=== PATIENT | male | born 1970 | race Caucasian/White ===

== ENCOUNTER → 2016-09-09 | Outpatient (CLI) | payer OTHER ==
--- NOTE | 2016-09-09 12:57 | EST ---
DATE OF SERVICE: 09/09/2016 AGE: 46Y SEX: M HT: 66" WT: 149 lbs. Protocol Baudilio: X Other: Stage: IV Dur. of Exercise: 10 minutes *Heart Rate Blood Pressure *Rest: 99 Rest: 140/93 * *Max. Achieved: 163 Maximum BP: 186/65 85% PMHR: 149 100% PMHR: 175 *METS: INDICATIONS: Chest pain. MEDICATIONS: Clyde, Ativan, Motrin. Patient was exercised for a total period of 10 minutes. A peak heart rate of 163 was achieved. Maximum blood pressure of 186/65 mmHg was noted. Resting EKG shows normal sinus rhythm with normal NH interval and QRS duration and normal ST-T waves. No ST segment depression suggestive of ischemia was noted. No dysrhythmias are noted. FINAL IMPRESSION: This exercise test is not suggestive of ischemia. Patient's exercise tolerance is normal. No dysrhythmias are noted.
--- NOTE | 2016-09-11 15:15 | ECHOF ---
Referral Reason:Atypical Chest Pain MEASUREMENTS -------- HEIGHT: 167.6 cm WEIGHT: 67.6 kg BP: 140/93 RVIDd: 2.1 cm (< 3.3) IVSd: 1.1 cm (0.6 - 1.1) LVIDd: 4.5 cm (3.9 - 5.3) LVPWd: 1.0 cm (0.6 - 1.1) IVSs: 1.4 cm LVIDs: 3.3 cm LVPWs: 1.2 cm LA Diam: 3.0 cm (2.7 - 3.8) LAESV Index (A-L): 13.44 ml/m Ao Diam: 3.0 cm (2.0 - 3.7) AV Cusp: 1.8 cm (1.5 - 2.6) LA Diam: 2.3 cm (2.7 - 3.8) MV EXCURSION: 11.063 mm (> 18.000) MV EF SLOPE: 44 mm/s (70 - 150) EPSS: 1.3 cm MV E Allen: 0.44 m/s MV DecT: 144 ms MV A Allen: 0.59 m/s MV E/A Ratio: 0.74 RAP: 5.00 mmHg RVSP: 23.52 mmHg FINDINGS -------- Sinus rhythm. This was a technically good study. Left ventricular wall thickness is normal. Overall left ventricular systolic function is low-normal with, an EF between 50 - 55 %. The right ventricle is normal in size. Normal LA size by volume 22+/-6 ml/m2. The right atrium is normal in size. The aortic valve is trileaflet and appears structurally normal. The mitral valve leaflets are mildly thickened. Mild mitral annular calcification present. There is trace mitral regurgitation. Trace tricuspid regurgitation present. Right ventricular systolic pressure is normal at < 35 mmHg. Pulmonic valve appears structurally normal. The aortic root size is normal. Normal inferior vena cava with normal inspiratory collapse consistent with estimated right atrial pressure of 5 mmHg. There is no pericardial effusion. CONCLUSIONS -------- 1. Sinus rhythm. 2. Mild mitral annular calcification present. 3. There is trace mitral regurgitation. 4. Trace tricuspid regurgitation present. 5. Right ventricular systolic pressure is normal at < 35 mmHg. 6. Pulmonic valve appears structurally normal. 7. The aortic root size is normal. 8. Normal inferior vena cava with normal inspiratory collapse consistent with estimated right atrial pressure of 5 mmHg. 9. There is no pericardial effusion. 10. This was a technically good study. 11. Left ventricular wall thickness is normal. 12. Overall left ventricular systolic function is low-normal with, an EF between 50 - 55 %. 13. The right ventricle is normal in size. 14. Normal LA size by volume 22+/-6 ml/m2. 15. The right atrium is normal in size. 16. The aortic valve is trileaflet and appears structurally normal. 17. The mitral valve leaflets are mildly thickened. [employer] SALESPERSON: Jess Danielle RDCS
== END | disposition home or self-care (01) ==
LOC: RADNMMAIN 11:03
PROVIDERS: ATTEND Family Medicine
DX: I08.1 Rheumatic disorders of both mitral and tricuspid valves (principal)
CPT/HCPCS: 93017; 93306

== ENCOUNTER → 2016-11-15 | Outpatient (CLI) | payer OTHER | END | disposition home or self-care (01) | LOC: RADECHMAIN 11:58 | PROVIDERS: ATTEND Family Medicine | DX: I48.0 Paroxysmal atrial fibrillation (principal) | CPT/HCPCS: 93270; 93271 ==

== ENCOUNTER → 2016-12-08 | Outpatient (CLI) | payer OTHER ==
--- NOTE | 2016-12-08 16:18 | US ---
EXAMINATION TYPE: US venous doppler duplex LE LT DATE OF EXAM: 12/08/2016 4:07 PM COMPARISON: NONE CLINICAL HISTORY: Left Thigh Left Calf Pain M79.605. Pt states left leg pain and numbness SIDE PERFORMED: Left TECHNIQUE: The lower extremity deep venous system is examined utilizing real time linear array sonog dariana with graded compression, doppler sonography and color-flow sonography. VESSELS IMAGED: External Iliac Vein (EIV) Common Femoral Vein Deep Femoral Vein Greater Saphenous Vein * Femoral Vein Popliteal Vein Small Saphenous Vein * Proximal Calf Veins (* superficial vessels) No popliteal fossa lesion is seen. Left Leg: Negative for DVT Results called to Elaine at Dr's office at time of exam IMPRESSION: THIS EXAMINATION IS NEGATIVE FOR DVT WITHIN THE LEFT LEG.
== END | disposition home or self-care (01) ==
LOC: RADUSWWP 15:20
PROVIDERS: ATTEND Family Medicine
DX: M79.605 Pain in left leg (principal)

== ENCOUNTER → 2017-01-02 | Outpatient (CLI) | payer OTHER ==
[2017-01-02 15:51] LABS: CHCM 34.2; HCT 43.3 % (39.0-53.0); HDW 2.56; HGB 14.4 gm/dL (13.0-17.5); MCH 32.3 pg (25.0-35.0); MCHC 33.3 g/dL (31.0-37.0); MCV 96.9 fL (80.0-100.0); Mean Platelet Volume 7.2; RBC 4.47 m/uL (4.30-5.90); RDW 13.4 % (11.5-15.5); WBC 8.1 k/uL (3.8-10.6)
[2017-01-02 16:09] LABS: ALT 33 U/L (21-72); AST 25 U/L (17-59); Blood Urea Nitrogen 24 mg/dL (9-20); Non-African American GFR(MDRD) >60 (>60 ml/min/1.73 sqM)
[2017-01-02 16:41] LABS: Hepatitis B Surface Ag Index 0.05
[2017-01-02 16:58] LABS: Hepatitis B Surface Antibody Negative (Negative); Hepatitis C Virus IgG Ab Negative (Negative); Hepatitis C Virus IgG Index 0.02
== END | disposition home or self-care (01) ==
LOC: LABWHC1 15:31
DX: L40.0 Psoriasis vulgaris (principal); R03.0 Elevated blood-pressure reading, without diagnosis of hypertension
CPT/HCPCS: 36415; 82565; 84450; 84460; 84520; 85027; 86706; 86803; 87340

== ENCOUNTER → 2017-01-11 | Outpatient (CLI) | payer OTHER ==
[2017-01-11 15:08] LABS: CH 32.2; CHCM 34.9; HCT 37.1 % (39.0-53.0); HDW 2.71; HGB 13.2 gm/dL (13.0-17.5); MCH 32.8 pg (25.0-35.0); MCHC 35.5 g/dL (31.0-37.0); MCV 92.4 fL (80.0-100.0); Mean Platelet Volume 7.3; RBC 4.01 m/uL (4.30-5.90); RDW 13.1 % (11.5-15.5); WBC 7.7 k/uL (3.8-10.6)
[2017-01-11 19:44] LABS: ALT 29 U/L (21-72); AST 24 U/L (17-59); Blood Urea Nitrogen 15 mg/dL (9-20); Non-African American GFR(MDRD) >60 (>60 ml/min/1.73 sqM)
[2017-01-11 20:18] LABS: Hepatitis B Surface Ag Index 0.06
[2017-01-11 20:36] LABS: Hepatitis B Surface Antibody Negative (Negative); Hepatitis C Virus IgG Ab Negative (Negative); Hepatitis C Virus IgG Index 0.01
== END | disposition home or self-care (01) ==
LOC: LABWHC1 14:37
PROVIDERS: ATTEND Dermatology
DX: L40.0 Psoriasis vulgaris (principal)
CPT/HCPCS: 36415; 82565; 84450; 84460; 84520; 85027; 86706; 86803; 87340

== ENCOUNTER → 2017-01-26 | Outpatient (CLI) | payer OTHER | END | disposition home or self-care (01) | LOC: LABPAT 13:10 | PROVIDERS: ATTEND Internal Medicine Interventional Cardiology | DX: Z01.812 Encounter for preprocedural laboratory examination (principal); R07.9 Chest pain, unspecified | CPT/HCPCS: 80051 ==

== ENCOUNTER 2017-01-30 07:20 | Day surgery (SDC) | payer OTHER ==
[2017-01-26 09:05] VITALS: BMI 24.2
[~2017-01-30 07:20] MED LIST: ALPRAZolam 0.25 MG TAB PO PRN; ALPRAZolam 0.5 MG TAB PO PRN; ASPIRIN 325 MG TAB PO STA; ATORVASTATIN 80 MG TAB PO STA; NITROGLYCERIN SL TABS 0.4 MG TAB SUBLINGUAL PRN; SODIUM CHLORIDE 0.9% 1,000 ML in EMPTY BAG 1 BAG IV ONE
[2017-01-30] MEDS ORDERED: MIDAZOLAM 2 MG/2 ML VIAL IV ONE (09:00)
[2017-01-30] MEDS ORDERED: LIDOCAINE 2% INJ 20 MG/ML SQ ONE (09:02)
[2017-01-30] MEDS: VERAPAMIL SYRINGE (5 MG/10 ML) INTRAARTER ONE ×2 (09:15→09:30)
[2017-01-30] MEDS ORDERED: IOHEXOL 350 MG/ML 125ML BOTTLE INJ ONE (09:30)
[2017-01-30] MEDS ORDERED: RX INFO: IV CONTRAST WAS GIVEN 1 EACH MISC MISCELLANE PRN (09:35)
[2017-01-30] MEDS ORDERED: SODIUM CHLORIDE 0.9% 1,000 ML IV SCH (09:45)
[2017-01-30 09:49] VITALS: TEMP 97.8
[2017-01-30] MEDS ORDERED: HYDROcodone/APAP 10-325MG 1 EACH TAB PO ONE (11:15)
[2017-01-30 11:22] VITALS: RESP 16
[2017-01-30 14:17] VITALS: BP 119/76; PULSE 68
--- NOTE | 2017-01-31 06:12 | CC ---
DATE OF SERVICE: 01/30/2017 PERFORMING PHYSICIAN: Tez Calles MD, slinger sequins. PROCEDURE PERFORMED: 1. Selective right and left coronary angiogram. 2. Left heart catheterization. 3. Left ventriculography. INDICATIONS: This is a pleasant 46-year-old gentleman with hypertension and family history of coronary artery disease continues to have exertional chest discomfort. APPROACH: Right radial artery. COMPLICATION: None. LEVEL OF SEDATION: Moderate with a sedation length of 30 minutes. PROCEDURE DESCRIPTION: After obtaining an informed consent, the patient was brought to the cardiac slab conditioner supervisor. The right radial artery was cannulated. Using micropuncture technique under ultrasound guidance, the micropuncture wire passed easily and placed a 6-Czech sheath in the right radial artery. Subsequently, the selective right and left coronary angiograms using JR3.5 and JL3.0 catheters. After that, I did a left heart catheterization and LV gram using 5 Czech pigtail catheter. The procedure was completed without any complication. SELECTIVE CORONARY ANGIOGRAM 1. The right coronary artery is a large caliber vessel. It is a dominant vessel which is angiographically normal. 2. The left main is angiographically normal. It bifurcates into the left circumflex and left anterior descending artery. 3. The left circumflex is a large caliber vessel and it is a nondominant vessel. The left circumflex is angiographically normal. It gives rise into 2 obtuse marginal branches, both are angiographically normal. 4. Left anterior descending artery. It is a large caliber vessel and it is angiographically normal. In the mid portion, it gives rise into large first diagonal branch, which appears to be angiographically normal. HEMODYNAMICS: The left ventricular end-diastolic pressure was ( ) mmHg. No gradient was identified across the aortic valve. LEFT VENTRICULOGRAPHY: Left ventriculography was performed in the AGUIRRE projection using a ( ) injection. The left ventricular systolic function is low normal with EF of about 50%. CONCLUSION: 1. Normal coronary angiogram. 2. Low normal left ventricular systolic function with an ejection fraction of 50%. POSTPROCEDURE MANAGEMENT: 1. Maximize medical treatment. 2. Blood pressure control. 3. Follow up with the patient. [facility]ITAL[facility]
--- NOTE | 2017-01-31 06:22 | MISC ---
January 30, 2017 NAVEEN DING MD RE Mj Chowdhury Dear Naveen: MrBhargavi Chowdhury underwent a heart catheterization that showed normal coronaries. I want to thank you for allowing me to participate in his care and please do not hesitate to call if you have any questions or concerns. Sincerely, MD HEMANT Ac
== END 2017-01-30 14:40 | disposition home or self-care (01) ==
LOC: CATHCVL 07:20
PROVIDERS: ATTEND Internal Medicine Interventional Cardiology
DX: I20.0 Unstable angina (principal); I10 Essential (primary) hypertension; Z82.49 Family history of ischemic heart disease and other diseases of the circulatory system; Z79.82 Long term (current) use of aspirin; Z87.891 Personal history of nicotine dependence; Z79.899 Other long term (current) drug therapy
CPT/HCPCS: 93458; 76937; 99152; 99153; C1769; C1894; J2001; J2250; J1644; Q9967

== ENCOUNTER → 2017-09-08 | Outpatient (CLI) | payer OTHER ==
[2017-09-08 10:09] LABS: Basophils % (A) 0 %; Eosinophils # (A) 0.1 k/uL (0-0.7); Eosinophils % (A) 1 %; HCT 41.2 % (39.0-53.0); HGB 13.8 gm/dL (13.0-17.5); Lymphocytes # (A) 1.7 k/uL (1.0-4.8); Lymphocytes % (A) 32 %; MCH 30.1 pg (25.0-35.0); MCHC 33.6 g/dL (31.0-37.0); MCV 89.8 fL (80.0-100.0); Mean Platelet Volume 7.8; Monocytes # (A) 0.3 k/uL (0-1.0); Monocytes % (A) 5 %; Neutrophils # (A) 3.2 k/uL (1.3-7.7); Neutrophils % (A) 60 %; Platelet Count 217 k/uL (150-450); RBC 4.59 m/uL (4.30-5.90); RDW 13.2 % (11.5-15.5); WBC 5.3 k/uL (3.8-10.6)
[2017-09-08 10:26] LABS: ALT 71 U/L (21-72); AST 30 U/L (17-59)
[2017-09-12 14:14] LABS: Hepatitis BE Antibody NEG (Negative); Hepatitis BE Antigen NEG (Negative)
== END | disposition home or self-care (01) ==
LOC: LABWHC1 09:45
PROVIDERS: ATTEND Dermatology
DX: L40.0 Psoriasis vulgaris (principal); R03.0 Elevated blood-pressure reading, without diagnosis of hypertension
CPT/HCPCS: 36415; 82565; 84450; 84460; 85025; 86480; 86707; 87350

== ENCOUNTER 2017-10-26 00:59 | Observation (INO) | payer OTHER ==
[2017-10-26] MEDS ORDERED: MORPHINE SULFATE 4MG/4ML SYRG IVP STA (01:26)
[2017-10-26] MEDS ORDERED: ONDANSETRON 4 MG/2 ML VIAL IVP STA (01:26)
[2017-10-26] MEDS ORDERED: SODIUM CHLORIDE 0.9% 1,000 ML IV STA (01:26)
[2017-10-26 02:07] LABS: Basophils % (A) 0 %; Eosinophils # (A) 0.1 k/uL (0-0.7); Eosinophils % (A) 2 %; HCT 40.1 % (39.0-53.0); HGB 13.9 gm/dL (13.0-17.5); Lymphocytes # (A) 2.2 k/uL (1.0-4.8); Lymphocytes % (A) 38 %; MCHC 34.5 g/dL (31.0-37.0); MCV 86.9 fL (80.0-100.0); Mean Platelet Volume 7.6; Monocytes # (A) 0.4 k/uL (0-1.0); Monocytes % (A) 7 %; Neutrophils % (A) 51 %; Platelet Count 203 k/uL (150-450); RBC 4.62 m/uL (4.30-5.90); RDW 13.4 % (11.5-15.5); WBC 5.8 k/uL (3.8-10.6)
--- NOTE | 2017-10-26 02:20 | XR ---
EXAMINATION TYPE: XR KUB DATE OF EXAM: 10/26/2017 COMPARISON: 02/18/2011 HISTORY: Abdominal pain TECHNIQUE: 2 views FINDINGS: There is no sign of intestinal obstruction or pneumoperitoneum. Fecal pattern is normal. Mary Carmen ng bases are clear. There are no pathologic calcifications over the kidneys. IMPRESSION: Nonacute abdomen. No change.
[2017-10-26 02:22] LABS: ALT 53 U/L (21-72); AST 30 U/L (17-59); Albumin 3.7 g/dL (3.5-5.0); Alkaline Phosphatase 79 U/L (38-126); Amylase 56 U/L (30-110); Anion Gap 10 mmol/L; Blood Urea Nitrogen 15 mg/dL (9-20); Calcium 9.6 mg/dL (8.4-10.2); Carbon Dioxide 28 mmol/L (22-30); Chloride 105 mmol/L (98-107); Glucose 99 mg/dL (74-99); Lipase 40 U/L (23-300); Potassium 4.2 mmol/L (3.5-5.1); Sodium 143 mmol/L (137-145); Total Bilirubin 0.2 mg/dL (0.2-1.3); Total Protein 6.2 g/dL (6.3-8.2)
[2017-10-26 02:37] LABS: Appearance,Urine Clear (Clear); Bilirubin,Urine Negative (Negative); Blood,Urine Negative (Negative); Color,Urine Light Yellow; Glucose,Urine (UA) Negative (Negative); Ketones,Urine Negative (Negative); Leukocyte Esterase,Urine Negative (Negative); Nitrite,Urine Negative (Negative); Protein,Urine Negative (Negative); Specific Gravity,Urine 1.012 (1.001-1.035); Urobilinogen,Urine <2.0 mg/dL (<2.0)
[2017-10-26] MEDS ORDERED: RX INFO: IV CONTRAST WAS GIVEN 1 EACH MISC MISCELLANE PRN (02:39)
--- NOTE | 2017-10-26 03:08 | CT ---
EXAMINATION TYPE: CT abdomen pelvis w con DATE OF EXAM: 10/26/2017 COMPARISON: NONE HISTORY: RLQ pain CT DLP: 472.40 mGycm Automated exposure control for dose reduction was used. TECHNIQUE: Helical acquisition of images was performed from the lung bases through the pelvis. CONTRAST: Performed without Oral Contrast and with IV Contrast, patient injected with 100 mL of Isovue 300. FINDINGS: Lung bases are clear. There is no pleural effusion. Heart size is normal. Liver spleen pancreas gallbladder appear normal. Bile ducts are not dilated. There is no adrenal mass . Kidneys show satisfactory contrast opacification. There is no hydronephrosis. Bladder distends smoo thly. There is no retroperitoneal adenopathy. There is no ascites. There is no sign of free air. Bony structures appear intact. Lumbar spine appears normal. I see no intestinal wall thickening. There ar e no dilated loops. There is high density in the appendix that could be calcification or previous con trast. Appendix measures 6-7 mm. I see no surrounding inflammation. There is no evidence of a hernia. IMPRESSION: APPENDIX IS TOP NORMAL IN THICKNESS. NO SURROUNDING INFLAMMATION. NO EVIDENCE OF RENAL MASS OR OBSTRU CTION. I DO NOT SEE A DEFINITE CAUSE FOR RIGHT LOWER QUADRANT PAIN. The possibility of a very early a ppendicitis cannot be entirely excluded.
--- NOTE | 2017-10-26 03:46 | ED ---
Abdominal Pain HPI - General Source: patient Mode of arrival: ambulatory Limitations: no limitations <Juanita Esteves - Last Filed: 10/26/17 04:01> <Tristian Dunaway - Last Filed: 10/29/17 10:08> - General Chief Complaint: Abdominal Pain Stated Complaint: LRQ pain Time Seen by Provider: 10/26/17 01:22 - History of Present Illness Initial Comments: 47 year-old male patient presents to the emergency department today for complaints of right lower quadrant abdominal pain. Patient reports the pain started approximately 2:30 this afternoon has progressively worsened. Patient states he has felt nauseated but has not vomited. He states the pain is now starting to radiate around to his back. He denies any hematuria, dysuria, urinary frequency, urinary urgency. Denies any previous surgeries. Denies any known fevers or chills. Patient denies any recent rash, shortness breath, chest pain, diarrhea, constipation, back pain, numbness, tingling, dizziness, weakness , headache, visual changes, or any other complaints. (Juanita Esteves) - Related Data Home Medications Medication Instructions Recorded Confirmed Hydrocodone/Acetaminophen 1 tab PO DAILY PRN 07/03/15 10/26/17 [Hydrocodone-Acetamin 10-325 mg] Aspirin EC [Ecotrin Low Dose] 81 mg PO DAILY 01/26/17 10/26/17 LORazepam [Ativan] 1 mg PO DAILY PRN 01/26/17 10/26/17 Metoprolol Tartrate [Lopressor] 25 mg PO BID 01/26/17 10/26/17 Ranitidine HCl 150 mg PO DAILY PRN 01/26/17 10/26/17 amLODIPine BESYLATE [Norvasc] 10 mg PO DAILY 01/26/17 10/26/17 Allergies Allergy/AdvReac Type Severity Reaction Status Date / Time No Known Allergies Allergy Verified 10/26/17 07:39 Review of Systems ROS Other: All systems not noted in ROS Statement are negative. <Juanita Esteves - Last Filed: 10/26/17 04:01> ROS Other: All systems not noted in ROS Statement are negative. <Tristian Dunaway - Last Filed: 10/29/17 10:08> ROS Statement: Those systems with pertinent positive or pertinent negative responses have been documented in the HPI. Past Medical History Past Medical History: Chest Pain / Angina, GERD/Reflux, Hyperlipidemia, Hypertension, Skin Disorder Additional Past Medical History / Comment(s): SEASONAL ALLERGIES. PSORIASIS History of Any Multi-Drug Resistant Organisms: None Reported Past Surgical History: Orthopedic Surgery Additional Past Surgical History / Comment(s): rt shoulder SX. LT ARM SX Past Anesthesia/Blood Transfusion Reactions: No Reported Reaction Past Psychological History: Anxiety Smoking Status: Former smoker Past Alcohol Use History: None Reported Past Drug Use History: None Reported - Past Family History Mother Family Medical History: No Reported History <Juanita Esteves M - Last Filed: 10/26/17 04:01> General Exam Limitations: no limitations General appearance: alert, in no apparent distress, other (This is a well- developed, well-nourished adult male patient in no acute distress. Vital signs upon presentation are temperature 98.8F, pulse 67, respirations 16, blood pressure 134/96, pulse ox 98% on room air.) Eye exam: Present: normal appearance, PERRL, EOMI. Absent: scleral icterus, conjunctival injection, periorbital swelling ENT exam: Present: normal exam, normal oropharynx, mucous membranes moist Respiratory exam: Present: normal lung sounds bilaterally. Absent: respiratory distress, wheezes, rales, rhonchi, stridor Cardiovascular Exam: Present: regular rate, normal rhythm, normal heart sounds. Absent: systolic murmur, diastolic murmur, rubs, gallop, clicks GI/Abdominal exam: Present: soft, tenderness (Right lower quadrant tenderness at McBurney's point. Periumbilical tenderness.), normal bowel sounds. Absent: distended, guarding, rebound, rigid Neurological exam: Present: alert, oriented X3, CN II-XII intact Psychiatric exam: Present: normal affect, normal mood Skin exam: Present: warm, dry, intact, normal color. Absent: rash <Juanita Esteves M - Last Filed: 10/26/17 04:01> Vital Signs 10/26/17 10/26/17 10/26/17 01:10 04:11 05:09 Temperature 98.8 F 97.8 F 97.1 F L Pulse Rate 67 73 67 Respiratory 16 16 18 Rate Blood Pressure 134/96 121/76 131/87 O2 Sat by Pulse 98 98 97 Oximetry Medical Decision Making - Lab Data Result diagrams: 10/26/17 01:58 10/26/17 01:58 - Radiology Data Radiology results: report reviewed, image reviewed <Juanita Esteves - Last Filed: 10/26/17 04:01> - Lab Data Result diagrams: 10/26/17 08:28 10/26/17 01:58 <Tristian Dunaway - Last Filed: 10/29/17 10:08> - Medical Decision Making 47 old male patient presents to the emergency department today for evaluation of right lower quadrant abdominal pain. Physical examination did reveal some right lower quadrant and periumbilical abdominal tenderness. Labs reviewed and were unremarkable. White blood cell count is normal at this time. Patient is afebrile. Given patient's symptoms coupled with the view of the appendix on computed tomography scan we cannot exclude early appendicitis. My attending Dr. Dunaway did speak to Dr. Lopez who accepts patient for observation. We will provide symptomatic management. (Juanita Esteves) I saw this patient in conjunction with the physician music assistant. I performed independent history and physical exam. Agree with case management. (Tristian Dunaway) - Lab Data Lab Results 10/26/17 10/26/17 10/26/17 Range/Units 01:58 01:58 02:24 WBC 5.8 (3.8-10.6) k/uL RBC 4.62 (4.30-5.90) m/uL Hgb 13.9 (13.0-17.5) gm/dL Hct 40.1 (39.0-53.0) % MCV 86.9 (80.0-100.0) fL MCH 30.0 (25.0-35.0) pg MCHC 34.5 (31.0-37.0) g/dL RDW 13.4 (11.5-15.5) % Plt Count 203 (150-450) k/uL Neutrophils % 51 % Lymphocytes % 38 % Monocytes % 7 % Eosinophils % 2 % Basophils % 0 % Neutrophils # 3.0 (1.3-7.7) k/uL Lymphocytes # 2.2 (1.0-4.8) k/uL Monocytes # 0.4 (0-1.0) k/uL Eosinophils # 0.1 (0-0.7) k/uL Basophils # 0.0 (0-0.2) k/uL Sodium 143 (137-145) mmol/L Potassium 4.2 (3.5-5.1) mmol/L Chloride 105 (98-107) mmol/L Carbon Dioxide 28 (22-30) mmol/L Anion Gap 10 mmol/L BUN 15 (9-20) mg/dL Creatinine 0.93 (0.66-1.25) mg/dL Est GFR (CKD-EPI)AfAm >90 (>60 ml/min/1.73 sqM) Est GFR (CKD-EPI)NonAf >90 (>60 ml/min/1.73 sqM) Glucose 99 (74-99) mg/dL Calcium 9.6 (8.4-10.2) mg/dL Total Bilirubin 0.2 (0.2-1.3) mg/dL AST 30 (17-59) U/L ALT 53 (21-72) U/L Alkaline Phosphatase 79 (38-126) U/L Total Protein 6.2 L (6.3-8.2) g/dL Albumin 3.7 (3.5-5.0) g/dL Amylase 56 (30-110) U/L Lipase 40 (23-300) U/L Urine Color Light Yellow Urine Appearance Clear (Clear) Urine pH 5.0 (5.0-8.0) Ur Specific [place] 1.012 (1.001-1.035) Urine Protein Negative (Negative) Urine Glucose (UA) Negative (Negative) Urine Ketones Negative (Negative) Urine Blood Negative (Negative) Urine Nitrite Negative (Negative) Urine Bilirubin Negative (Negative) Urine Urobilinogen <2.0 (<2.0) mg/dL Ur Leukocyte Esterase Negative (Negative) - Radiology Data 2 views of the abdomen shows no sign of intestinal obstruction or pneumoperitoneum. Fecal pattern is normal. Lung bases are clear. There are no pathologic calcifications over the kidneys. Impression by Dr. Medel shows nonacute abdomen no change. CT of the abdomen and pelvis with contrast was obtained. Report was reviewed in its entirety. Impression by Dr. Medel shows appendix is top normal in thickness. No surrounding inflammation. No evidence of renal mass or obstruction. I do not see definite cause for right lower quadrant pain. The possibility of very early appendicitis cannot be entirely excluded. (Juanita Esteves) Disposition Is patient prescribed a controlled substance at d/c from ED?: No Decision to Admit Reason: Admit from EC Decision Date: 10/26/17 Decision Time: 04:05 <Juanita Esteves - Last Filed: 10/26/17 04:01> <Tristian Dunaway - Last Filed: 10/29/17 10:08> Clinical Impression: Abdominal pain Narrative: Rule out Appendicitis (Juanita Esteves) Disposition: ADMITTED IP TO THIS HOSP Condition: Serious
[2017-10-26] MEDS ORDERED: ONDANSETRON 4 MG/2 ML VIAL IVP PRN (03:59)
[2017-10-26] MEDS ORDERED: NALOXONE 0.4 MG/ML 1 ML VIAL IV PRN (03:59)
[2017-10-26] MEDS ORDERED: SODIUM CHLORIDE 0.9% 1,000 ML IV SCH ×2 (04:00→07:45)
[2017-10-26] MEDS ORDERED: MORPHINE SULFATE 4MG/4ML SYRG IVP PRN (04:01)
[2017-10-26] MEDS ORDERED: MORPHINE SULFATE 4MG/4ML SYRG ONE (05:07)
[2017-10-26] MEDS ORDERED: MORPHINE SULFATE 4MG/4ML SYRG IV STA (05:20)
[2017-10-26 05:50] VITALS: BMI 26.1
[2017-10-26 06:19] VITALS: RESP 16
--- NOTE | 2017-10-26 08:01 | P.GSHP ---
History of Present Illness H&P Date: 10/26/17 Chief Complaint: RLQ abdominal pain This is a 47 y/o male who presents with RLQ pain which began yesterday around 2pm when he came home from work, he had a normal BM yesterday no blood. He had mild nausea no vomiting yesterday which has gotten better, he states he is hungry at this time. His pain has improved slightly since admission to the hospital. Nothing makes the pain worse or better at this time. He has never had pain like this before. He has never had abdominal surgery. PMH is significant only for HTN. he denies history or family history of crohns or UC. No F/C. No other complaints. No sick contacts. Past Medical History Past Medical History: Chest Pain / Angina, GERD/Reflux, Hypertension, Skin Disorder Additional Past Medical History / Comment(s): SEASONAL ALLERGIES. PSORIASIS History of Any Multi-Drug Resistant Organisms: None Reported Past Surgical History: Orthopedic Surgery Additional Past Surgical History / Comment(s): rt shoulder SX. LT ARM SX Past Anesthesia/Blood Transfusion Reactions: No Reported Reaction Past Psychological History: Anxiety Smoking Status: Former smoker Past Alcohol Use History: None Reported Additional Past Alcohol Use History / Comment(s): QUIT SMOKING 08/2016 Past Drug Use History: None Reported - Past Family History Mother Family Medical History: No Reported History Medications and Allergies Home Medications Medication Instructions Recorded Confirmed Type Hydrocodone/Acetaminophen 1 tab PO DAILY PRN 07/03/15 10/26/17 History [Hydrocodone-Acetamin 10-325 mg] Aspirin EC [Ecotrin Low Dose] 81 mg PO DAILY 01/26/17 10/26/17 History LORazepam [Ativan] 1 mg PO DAILY PRN 01/26/17 10/26/17 History Metoprolol Tartrate [Lopressor] 25 mg PO BID 01/26/17 10/26/17 History Ranitidine HCl 150 mg PO DAILY PRN 01/26/17 10/26/17 History amLODIPine BESYLATE [Norvasc] 10 mg PO DAILY 01/26/17 10/26/17 History Allergies Allergy/AdvReac Type Severity Reaction Status Date / Time No Known Allergies Allergy Verified 10/26/17 07:39 Surgical - Exam Osteopathic Statement: *. No significant issues noted on an osteopathic structural exam other than those noted in the History and Physical/Consult. Vital Signs Temp Pulse Resp BP Pulse Ox 98.8 F 67 16 134/96 98 10/26/17 01:10 10/26/17 01:10 10/26/17 01:10 10/26/17 01:10 10/26/17 01:10 - General well developed, well nourished, no distress - Eyes PERRL - Neck no masses - Respiratory normal expansion, normal respiratory effort - Cardiovascular Rhythm: regular - Abdomen soft/ND/mild TTP in RLQ no rebound rigidity or guarding - Neurologic normal coordination, normal sensation - Psychiatric oriented to time, oriented to person, oriented to place Results - Labs 10/26/17 01:58 10/26/17 01:58 Abnormal Lab Results - Last 24 Hours (Table) 10/26/17 Range/Units 01:58 Total Protein 6.2 L (6.3-8.2) g/dL Diabetes panel 10/26/17 Range/Units 01:58 Sodium 143 (137-145) mmol/L Potassium 4.2 (3.5-5.1) mmol/L Chloride 105 (98-107) mmol/L Carbon Dioxide 28 (22-30) mmol/L BUN 15 (9-20) mg/dL Creatinine 0.93 (0.66-1.25) mg/dL Glucose 99 (74-99) mg/dL Calcium 9.6 (8.4-10.2) mg/dL AST 30 (17-59) U/L ALT 53 (21-72) U/L Alkaline Phosphatase 79 (38-126) U/L Total Protein 6.2 L (6.3-8.2) g/dL Albumin 3.7 (3.5-5.0) g/dL Calcium panel 10/26/17 Range/Units 01:58 Calcium 9.6 (8.4-10.2) mg/dL Albumin 3.7 (3.5-5.0) g/dL Pituitary panel 10/26/17 Range/Units 01:58 Sodium 143 (137-145) mmol/L Potassium 4.2 (3.5-5.1) mmol/L Chloride 105 (98-107) mmol/L Carbon Dioxide 28 (22-30) mmol/L BUN 15 (9-20) mg/dL Creatinine 0.93 (0.66-1.25) mg/dL Glucose 99 (74-99) mg/dL Calcium 9.6 (8.4-10.2) mg/dL Adrenal panel 10/26/17 Range/Units 01:58 Sodium 143 (137-145) mmol/L Potassium 4.2 (3.5-5.1) mmol/L Chloride 105 (98-107) mmol/L Carbon Dioxide 28 (22-30) mmol/L BUN 15 (9-20) mg/dL Creatinine 0.93 (0.66-1.25) mg/dL Glucose 99 (74-99) mg/dL Calcium 9.6 (8.4-10.2) mg/dL Total Bilirubin 0.2 (0.2-1.3) mg/dL AST 30 (17-59) U/L ALT 53 (21-72) U/L Alkaline Phosphatase 79 (38-126) U/L Total Protein 6.2 L (6.3-8.2) g/dL Albumin 3.7 (3.5-5.0) g/dL Assessment and Plan Assessment: 1 day of RLQ abdominal pain, R/O appendicitis Plan: NPO, IVF NS@75, No pain meds or ABX at this time. Will perform serial abdominal exams. Patient has normal WBC and no radiologic evidence to suggest appendicitis at this time. If pain improves he will be started on a diet. Repeat labs in afternoon
[2017-10-26 11:58] LABS: Basophils % (A) 1 %; Eosinophils # (A) 0.1 k/uL (0-0.7); Eosinophils % (A) 2 %; HCT 40.3 % (39.0-53.0); Lymphocytes # (A) 2.4 k/uL (1.0-4.8); Lymphocytes % (A) 39 %; MCH 30.8 pg (25.0-35.0); MCHC 34.8 g/dL (31.0-37.0); MCV 88.5 fL (80.0-100.0); Mean Platelet Volume 8.4; Monocytes # (A) 0.5 k/uL (0-1.0); Monocytes % (A) 8 %; Neutrophils # (A) 3.1 k/uL (1.3-7.7); Neutrophils % (A) 50 %; Platelet Count 210 k/uL (150-450); RBC 4.55 m/uL (4.30-5.90); RDW 13.5 % (11.5-15.5); WBC 6.2 k/uL (3.8-10.6)
--- NOTE | 2017-10-26 12:29 | P.PN ---
Progress Note - Text Progress Note Date: 10/26/17 Patient was reexamined this afternoon. His abdomen remains soft. Mild tenderness to palpation in the right lower quadrant no rebound rigidity or guarding. He states the pain has not gotten any worse. He's been afebrile vital signs: Stable. His repeat CBC white count was normal. My suspicion for acute appendicitis at this time is low. Patient will be trialed on a regular diet if he tolerates a diet he may be discharged home. He was given specific instructions that should his pain continue or get worse or he has fevers or chills nausea vomiting to return to the emergency room. Patient was agreeable with this plan.
[2017-10-26 15:18] VITALS: BP 111/72; PULSE 69; TEMP 98.2
== END 2017-10-26 19:45 | disposition home or self-care (01) ==
LOC: EC 00:59 → 3SUR 05:21
PROVIDERS: ADMIT Student in an Organized Health Care Education/Training Program; ATTEND Student in an Organized Health Care Education/Training Program
DX: R10.31 Right lower quadrant pain (principal); R11.0 Nausea; K21.9 Gastro-esophageal reflux disease without esophagitis; I10 Essential (primary) hypertension; L40.9 Psoriasis, unspecified; F41.9 Anxiety disorder, unspecified; Z79.82 Long term (current) use of aspirin; Z79.899 Other long term (current) drug therapy; Z87.09 Personal history of other diseases of the respiratory system; Z87.891 Personal history of nicotine dependence
CPT/HCPCS: 99285 ×2; 96374 ×2; 96375 ×2; 96376 ×2; 96361 ×2; 36415; 80053; 82150; 83690; 85025; 81003; 74018; 74177; G0378; J2405; Q9967; J2270

== ENCOUNTER 2017-10-29 06:27 | Observation (INO) | payer OTHER ==
--- NOTE | 2017-10-29 07:32 | XR ---
EXAMINATION TYPE: XR KUB , 2 VIEWS DATE OF EXAM ORDERED: 10/29/2017 HISTORY: Right sided abdominal pain. COMPARISON: Previous study dated 10/26/[address] scan of the abdomen and pelvis dated 10/26/2017. FINDINGS: The lung bases are clear. Within the abdomen, the abdominal gas pattern is normal. There is no evidence of obstruction or free air. No unusual calcifications are seen. IMPRESSION: NO ACUTE INTRA-ABDOMINAL ABNORMALITY.
[2017-10-29] MEDS ORDERED: SODIUM CHLORIDE 0.9% 1,000 ML IV STA (07:42)
--- NOTE | 2017-10-29 07:47 | ED ---
General Adult HPI - General Chief complaint: Abdominal Pain Stated complaint: Abdominal Pain Time Seen by Provider: 10/29/17 07:32 Source: patient, RN notes reviewed Mode of arrival: wheelchair Limitations: no limitations - History of Present Illness Initial comments: Patient is a pleasant 47-year-old male presenting to the emergency Department with abdominal discomfort. Patient was in the hospital overnight and left 2 days ago. Discomfort seemed to let of some at that time. Discomfort never completely resolved. Discomfort worsens significantly around midnight. Discomfort has again started to improve while in the emergency department. Discomfort improves with rest and increases with movement. Car ride significantly was much worse. No fevers. Patient has had some nausea but no vomiting. - Related Data Home Medications Medication Instructions Recorded Confirmed Hydrocodone/Acetaminophen 1 tab PO DAILY PRN 07/03/15 10/26/17 [Hydrocodone-Acetamin 10-325 mg] Aspirin EC [Ecotrin Low Dose] 81 mg PO DAILY 01/26/17 10/26/17 LORazepam [Ativan] 1 mg PO DAILY PRN 01/26/17 10/26/17 Metoprolol Tartrate [Lopressor] 25 mg PO BID 01/26/17 10/26/17 Ranitidine HCl 150 mg PO DAILY PRN 01/26/17 10/26/17 amLODIPine BESYLATE [Norvasc] 10 mg PO DAILY 01/26/17 10/26/17 Allergies Allergy/AdvReac Type Severity Reaction Status Date / Time No Known Allergies Allergy Verified 10/26/17 07:39 Review of Systems ROS Statement: Those systems with pertinent positive or pertinent negative responses have been documented in the HPI. ROS Other: All systems not noted in ROS Statement are negative. Constitutional: Denies: fever Eyes: Denies: eye pain ENT: Denies: ear pain Respiratory: Denies: cough Cardiovascular: Denies: chest pain Endocrine: Denies: fatigue Gastrointestinal: Reports: abdominal pain, nausea. Denies: vomiting Genitourinary: Denies: dysuria Musculoskeletal: Denies: back pain Skin: Denies: rash Neurological: Denies: weakness Past Medical History Past Medical History: Chest Pain / Angina, GERD/Reflux, Hypertension, Skin Disorder Additional Past Medical History / Comment(s): SEASONAL ALLERGIES. PSORIASIS History of Any Multi-Drug Resistant Organisms: None Reported Past Surgical History: Orthopedic Surgery Additional Past Surgical History / Comment(s): rt shoulder SX. LT ARM SX Past Anesthesia/Blood Transfusion Reactions: No Reported Reaction Past Psychological History: Anxiety Smoking Status: Former smoker Past Alcohol Use History: None Reported Past Drug Use History: None Reported - Past Family History Mother Family Medical History: No Reported History General Exam Limitations: no limitations General appearance: alert, in no apparent distress Head exam: Present: atraumatic Eye exam: Present: normal appearance, PERRL ENT exam: Present: normal oropharynx Neck exam: Present: normal inspection Respiratory exam: Present: normal lung sounds bilaterally Cardiovascular Exam: Present: regular rate, normal rhythm Expanded Peripheral pulses: 2+: Dorsalis Pedis (R), Dorsalis Pedis (L) GI/Abdominal exam: Present: soft, tenderness (Moderate to severe tenderness right lower quadrant). Absent: distended, guarding, rebound, rigid, pulsatile mass Extremities exam: Present: normal inspection Neurological exam: Present: alert Psychiatric exam: Present: normal affect, normal mood Skin exam: Present: normal color Course Vital Signs 10/29/17 10/29/17 06:33 08:58 Temperature 96.9 F L Pulse Rate 81 69 Respiratory 16 18 Rate Blood Pressure 138/84 127/79 O2 Sat by Pulse 99 99 Oximetry - Reevaluation(s) Reevaluation #1: 10/29/17 09:31 Patient does not meet sepsis criteria. Medical Decision Making - Medical Decision Making Case was earlier discussed with Dr. mishra who did want repeat computed tomography scan. Dr. mishra was again contacted and will take patient to the OR. Patient was updated. Patient is resting comfortably in bed at this time. - Lab Data Result diagrams: 10/29/17 06:46 10/29/17 06:46 Lab Results 10/29/17 10/29/17 Range/Units 06:46 06:46 WBC 6.7 (3.8-10.6) k/uL RBC 4.83 (4.30-5.90) m/uL Hgb 14.8 (13.0-17.5) gm/dL Hct 42.3 (39.0-53.0) % MCV 87.5 (80.0-100.0) fL MCH 30.7 (25.0-35.0) pg MCHC 35.1 (31.0-37.0) g/dL RDW 13.4 (11.5-15.5) % Plt Count 210 (150-450) k/uL Neutrophils % 58 % Lymphocytes % 28 % Monocytes % 9 % Eosinophils % 1 % Basophils % 0 % Neutrophils # 3.9 (1.3-7.7) k/uL Lymphocytes # 1.9 (1.0-4.8) k/uL Monocytes # 0.6 (0-1.0) k/uL Eosinophils # 0.1 (0-0.7) k/uL Basophils # 0.0 (0-0.2) k/uL Sodium 145 (137-145) mmol/L Potassium 3.5 (3.5-5.1) mmol/L Chloride 105 (98-107) mmol/L Carbon Dioxide 28 (22-30) mmol/L Anion Gap 12 mmol/L BUN 13 (9-20) mg/dL Creatinine 0.97 (0.66-1.25) mg/dL Est GFR (CKD-EPI)AfAm >90 (>60 ml/min/1.73 sqM) Est GFR (CKD-EPI)NonAf >90 (>60 ml/min/1.73 sqM) Glucose 93 (74-99) mg/dL Calcium 9.6 (8.4-10.2) mg/dL Total Bilirubin 0.4 (0.2-1.3) mg/dL AST 30 (17-59) U/L ALT 47 (21-72) U/L Alkaline Phosphatase 84 (38-126) U/L Total Protein 6.5 (6.3-8.2) g/dL Albumin 3.9 (3.5-5.0) g/dL Amylase 63 (30-110) U/L Lipase 59 (23-300) U/L - Radiology Data Radiology results: image reviewed (Computed tomography scan does have some suspicion for appendicitis.) Disposition Clinical Impression: Abdominal pain Disposition: ADMITTED IP TO THIS HOSP Is patient prescribed a controlled substance at d/c from ED?: No Referrals: Naveen Funk DO [Primary Care Provider] - 1-2 days Decision Time: 09:25
[2017-10-29] MEDS ORDERED: MORPHINE SULFATE 4MG/4ML SYRG ONE (07:56)
[2017-10-29 07:57] LABS: Basophils % (A) 0 %; Eosinophils # (A) 0.1 k/uL (0-0.7); Eosinophils % (A) 1 %; HCT 42.3 % (39.0-53.0); HGB 14.8 gm/dL (13.0-17.5); Lymphocytes # (A) 1.9 k/uL (1.0-4.8); Lymphocytes % (A) 28 %; MCH 30.7 pg (25.0-35.0); MCHC 35.1 g/dL (31.0-37.0); MCV 87.5 fL (80.0-100.0); Monocytes # (A) 0.6 k/uL (0-1.0); Monocytes % (A) 9 %; Neutrophils # (A) 3.9 k/uL (1.3-7.7); Neutrophils % (A) 58 %; Platelet Count 210 k/uL (150-450); RBC 4.83 m/uL (4.30-5.90); RDW 13.4 % (11.5-15.5); WBC 6.7 k/uL (3.8-10.6)
[2017-10-29] MEDS ORDERED: MORPHINE SULFATE 4MG/4ML SYRG IVP STA (07:57)
[2017-10-29] MEDS ORDERED: ONDANSETRON 2 MG/1 ML 20 ML (MDV) VIAL IV ONE (07:57)
[2017-10-29] MEDS ORDERED: ONDANSETRON 4 MG/2 ML VIAL IVP ONE (07:59)
[2017-10-29 08:01] LABS: ALT 47 U/L (21-72); AST 30 U/L (17-59); Albumin 3.9 g/dL (3.5-5.0); Alkaline Phosphatase 84 U/L (38-126); Amylase 63 U/L (30-110); Anion Gap 12 mmol/L; Blood Urea Nitrogen 13 mg/dL (9-20); Calcium 9.6 mg/dL (8.4-10.2); Carbon Dioxide 28 mmol/L (22-30); Chloride 105 mmol/L (98-107); Glucose 93 mg/dL (74-99); Lipase 59 U/L (23-300); Sodium 145 mmol/L (137-145); Total Bilirubin 0.4 mg/dL (0.2-1.3); Total Protein 6.5 g/dL (6.3-8.2)
[2017-10-29 08:02] LABS: Potassium 3.5 mmol/L (3.5-5.1)
[2017-10-29] MEDS ORDERED: RX INFO: IV CONTRAST WAS GIVEN 1 EACH MISC MISCELLANE PRN (08:13)
--- NOTE | 2017-10-29 08:56 | CT ---
EXAMINATION TYPE: CT abdomen pelvis w con DATE OF EXAM: 10/29/2017 REFERENCE: Previous study dated 10/26/2017 HISTORY: Pain HISTORY: RLQ pain CT DLP: 467.7 mGy Automated exposure control for dose reduction was used. TECHNIQUE: Helical acquisition through the abdomen and pelvis was obtained following the oral ingesti on of without Oral Contrast and following intravenous administration of 100 mL of Isovue 300. The thomas a was reformatted in axial, coronal and sagittal projections. FINDINGS: Visualized portions of the lungs are clear. There is no pleural or pericardial fluid. The h eart is not enlarged. Within the abdomen, the liver, spleen and gallbladder are normal. Both adrenal glands are normal. The pancreas is unremarkable. Both kidneys demonstrate function and appear morphologically normal. There is no significant retroperitoneal, iliac or inguinal adenopathy. The bladder is unremarkable. There is no significant diverticular change and there is no radiographic evidence of diverticulitis. The sigmoid colon is mildly thickened. The appendix measures 9 mm. The wall appears thickened. There is radiopaque debris within the appendi x. There is mild periappendiceal inflammatory change. There has been a distinct change in the appeara nce since the previous study. Small bowel loops are normal. There is no free fluid and no free air identified. No osseous lesion is seen. IMPRESSION: 1. FINDINGS SUGGESTIVE OF ACUTE APPENDICITIS. PLEASE CORRELATE CLINICALLY. 2. THICKENING OF THE WALL OF THE SIGMOID COLON. PLEASE CORRELATE FOR COLITIS.
[2017-10-29] MEDS ORDERED: SODIUM CHLORIDE 0.9% 1,000 ML IV ONE (09:31)
[2017-10-29 10:33] VITALS: BMI 25.8
[2017-10-29] MEDS ORDERED: PIPERACILLIN-TAZOBACTAM 3.375 GM in DEXTROSE/WATER 1 50ML.BAG IVPB STA (10:45)
[2017-10-29] MEDS ORDERED: HEPARIN SODIUM,PORCINE 5,000 UNIT/ML 1 ML VIAL SQ STA (10:45)
--- NOTE | 2017-10-29 11:15 | P.GSHP ---
History of Present Illness H&P Date: 10/29/17 This is a 47-year-old male Who presented to the emergency room with worsening right lower quadrant pain. He previously been examined and observed overnight 3 days ago secondary to right lower quadrant pain which improved. He never had a white count that was elevated. Repeat computed tomography scan today shows thickening of the appendix and concern for appendicitis. Patient states his pain initially improved but then got worse over the last 24 hours he states his pain is in his right lower quadrant some nausea no vomiting he denies any fevers or chills. Passing normal bowel movements with no blood. Past Medical History Past Medical History: Chest Pain / Angina, GERD/Reflux, Hypertension, Skin Disorder Additional Past Medical History / Comment(s): SEASONAL ALLERGIES. PSORIASIS History of Any Multi-Drug Resistant Organisms: None Reported Past Surgical History: Orthopedic Surgery Additional Past Surgical History / Comment(s): rt shoulder SX. Left elbow surgery Past Anesthesia/Blood Transfusion Reactions: No Reported Reaction Past Psychological History: Anxiety Smoking Status: Former smoker Past Alcohol Use History: None Reported Additional Past Alcohol Use History / Comment(s): QUIT SMOKING 08/2016 Past Drug Use History: None Reported - Past Family History Mother History Unknown: Yes Family Medical History: No Reported History Additional Family Medical History / Comment(s): stents Father Family Medical History: Cancer Additional Family Medical History / Comment(s): stomach cancer Medications and Allergies Home Medications Medication Instructions Recorded Confirmed Type Hydrocodone/Acetaminophen 1 tab PO DAILY PRN 07/03/15 10/29/17 History [Hydrocodone-Acetamin 10-325 mg] Aspirin EC [Ecotrin Low Dose] 81 mg PO DAILY 01/26/17 10/29/17 History LORazepam [Ativan] 1 mg PO DAILY PRN 01/26/17 10/29/17 History Metoprolol Tartrate [Lopressor] 25 mg PO BID 01/26/17 10/29/17 History Ranitidine HCl 150 mg PO DAILY PRN 01/26/17 10/29/17 History amLODIPine BESYLATE [Norvasc] 10 mg PO DAILY 01/26/17 10/29/17 History Allergies Allergy/AdvReac Type Severity Reaction Status Date / Time No Known Allergies Allergy Verified 10/26/17 07:39 Surgical - Exam Osteopathic Statement: *. No significant issues noted on an osteopathic structural exam other than those noted in the History and Physical/Consult. Vital Signs Temp Pulse Resp BP Pulse Ox 96.9 F L 81 16 138/84 99 10/29/17 06:33 10/29/17 06:33 10/29/17 06:33 10/29/17 06:33 10/29/17 06:33 - General well developed, well nourished, no distress - Eyes PERRL - Neck no masses, trachea midline - Respiratory normal expansion, normal respiratory effort - Cardiovascular Rhythm: regular - Abdomen Soft nondistended focal tenderness palpation in the right lower quadrant - Neurologic normal coordination, normal sensation - Psychiatric oriented to time, oriented to person, oriented to place Results - Labs 10/29/17 06:46 10/29/17 06:46 Diabetes panel 10/29/17 Range/Units 06:46 Sodium 145 (137-145) mmol/L Potassium 3.5 (3.5-5.1) mmol/L Chloride 105 (98-107) mmol/L Carbon Dioxide 28 (22-30) mmol/L BUN 13 (9-20) mg/dL Creatinine 0.97 (0.66-1.25) mg/dL Glucose 93 (74-99) mg/dL Calcium 9.6 (8.4-10.2) mg/dL AST 30 (17-59) U/L ALT 47 (21-72) U/L Alkaline Phosphatase 84 (38-126) U/L Total Protein 6.5 (6.3-8.2) g/dL Albumin 3.9 (3.5-5.0) g/dL Calcium panel 10/29/17 Range/Units 06:46 Calcium 9.6 (8.4-10.2) mg/dL Albumin 3.9 (3.5-5.0) g/dL Pituitary panel 10/29/17 Range/Units 06:46 Sodium 145 (137-145) mmol/L Potassium 3.5 (3.5-5.1) mmol/L Chloride 105 (98-107) mmol/L Carbon Dioxide 28 (22-30) mmol/L BUN 13 (9-20) mg/dL Creatinine 0.97 (0.66-1.25) mg/dL Glucose 93 (74-99) mg/dL Calcium 9.6 (8.4-10.2) mg/dL Adrenal panel 04/22/18 Range/Units 06:46 Sodium 145 (137-145) mmol/L Potassium 3.5 (3.5-5.1) mmol/L Chloride 105 (98-107) mmol/L Carbon Dioxide 28 (22-30) mmol/L BUN 13 (9-20) mg/dL Creatinine 0.97 (0.66-1.25) mg/dL Glucose 93 (74-99) mg/dL Calcium 9.6 (8.4-10.2) mg/dL Total Bilirubin 0.4 (0.2-1.3) mg/dL AST 30 (17-59) U/L ALT 47 (21-72) U/L Alkaline Phosphatase 84 (38-126) U/L Total Protein 6.5 (6.3-8.2) g/dL Albumin 3.9 (3.5-5.0) g/dL - Imaging CT scan - abdomen: report reviewed, image reviewed CT scan - pelvis: report reviewed, image reviewed Assessment and Plan Assessment: Right lower quadrant pain, CT and clinical findings concerning for appendicitis Plan: I had a lengthy discussion with the patient and his family regarding his right lower quadrant pain. He does not have a typical presentation for acute appendicitis however he has worsening right lower quadrant pain and he has thickened and dilated appendix on his computed tomography scan. I had a discussion with the patient and recommended diagnostic laparoscopy possible appendectomy. I discussed with him that there could be something else going on other than acute appendicitis and consented him for all other indicated procedures including but not limited to partial colectomy and conversion to open procedure. Patient stated he understood and agreed and consented informed consent was obtained
[2017-10-29] MEDS ORDERED: ROCURONIUM BROMIDE 10 MG/ML 10 ML VIAL IV ONE (11:29)
[2017-10-29] MEDS ORDERED: NEOSTIGMINE 1 MG/ML 10 ML VIAL ONE (11:29)
[2017-10-29] MEDS ORDERED: LIDOCAINE 1% INJ 10MG/ML (20 ML MDV) ONE (11:29)
[2017-10-29] MEDS ORDERED: DEXAMETHASONE SOD PHOS (MDV) 100 MG/10 ML VIAL ONE (11:29)
[2017-10-29] MEDS ORDERED: KETOROLAC 30 MG/ML 1 ML VIAL ONE (11:29)
[2017-10-29] MEDS ORDERED: PROPOFOL 10 MG/ML 20 ML VIAL IV ONE (11:29)
[2017-10-29] MEDS ORDERED: SUCCINYLCHOLINE CHLORIDE 100 MG/5 ML SYR IV ONE (11:29)
[2017-10-29] MEDS ORDERED: ONDANSETRON 4 MG/2 ML VIAL ONE (11:29)
[2017-10-29] MEDS ORDERED: fentaNYL (PF) 50 MCG/ML 2 ML AMP ONE (11:29)
[2017-10-29] MEDS ORDERED: GLYCOPYRROLATE 0.2 MG/ML 2 ML VIAL ONE (11:29)
[2017-10-29] MEDS ORDERED: LACTATED RINGERS 1,000 ML IV ONE ×2 (11:29→12:13)
[2017-10-29] MEDS ORDERED: MIDAZOLAM 2 MG/2 ML VIAL ONE (11:29)
[2017-10-29] MEDS ORDERED: DEXTROSE 5% IN WATER 50 ML BAG IVPB ONE (11:51)
[2017-10-29] MEDS ORDERED: LIDOCAINE 1%-EPI 1:100,000 20 ML VIAL SQ ONE (11:51)
[2017-10-29] MEDS ORDERED: LIDOCAINE 1% INJ 10MG/ML (20 ML MDV) SQ ONE (11:51)
[2017-10-29] MEDS ORDERED: MEPERIDINE 50 MG/ML SYRINGE IVP ONE ×2 (12:33→12:41)
--- NOTE | 2017-10-29 12:36 | P.OP ---
Date of Procedure: 10/29/17 Preoperative Diagnosis: Right lower quadrant pain rule out acute appendicitis Postoperative Diagnosis: Appendicitis, enteritis Procedure(s) Performed: Diagnostic laparoscopy with laparoscopic appendectomy Anesthesia: EMILE Surgeon: Mak Lopez Estimated Blood Loss (ml): 5 Condition: stable Disposition: PACU Indications for Procedure: This is a 47-year-old male who presented with a three-day history of right lower quadrant abdominal pain he previously been sent home from the hospital. He states the pain began getting worse and CT findings were consistent with a thickened appendix and possible appendicitis. He was described the risks benefits and alternatives to diagnostic laparoscopy with possible appendectomy and all other indicated procedures. He stated he understood agreed and consented Operative Findings: Injected and inflamed appendix, enteritis Description of Procedure: Patient was brought to the operative suite remained in the supine position underwent general endotracheal anesthesia per Department of anesthesia he was prepped and draped in the usual sterile fashion timeout was performed correct patient correct procedure correct site was verified. 2 cm incision was made in the left lower quadrant using a 12 mm Visiport the abdomen was entered under direct visualization. The abdomen was insufflated no injuries were noted a 5 mm port was placed supraumbilical under direct visualization as well as a 5mm suprapubic port. The appendix was isolated and noted to be injected with an area that appeared to be acutely inflamed in the mid body of the appendix. The entire small bowel was run from the terminal ileum to the ligament of Treitz the terminal ileum was noted to be without abnormality however the rest of the bowel appeared to be inflamed and injected. There was no mesenteric masses or abnormalities noted. The peritoneum was inspected no peritoneal or omental studding was noted. At this time decision was made to proceed with appendectomy given the inflammation of the appendix. The mesial appendix was taken down using a LigaSure device to the base of the appendix at the cecum and using a 45 mm melchor load Endo KRISTEN stapler the appendix was stapled across at the base the cecum. It was placed in an Endo Catch bag and removed through the 12 mm port site. The staple line was inspected for hemostasis which was noted. The 12 mm port site fascia was closed with a 0 Vicryl suture in a figure-of- eight fashion with 8 of a SteveMaria De Jesus suture passer. All ports removed under direct visualization and the abdomen was desufflated. Skin was closed with 4-0 Vicryl subcuticular sutures and skin glue patient tolerated procedure well no apparent complications
[2017-10-29] MEDS ORDERED: ONDANSETRON 4 MG/2 ML VIAL IVP PRN (12:39)
[2017-10-29] MEDS ORDERED: fentaNYL (PF) 50 MCG/ML 2 ML AMP IVP ONE ×3 (12:55→13:12)
[2017-10-29] MEDS: MORPHINE SULFATE 4 MG/0.8 ML SYRINGE (INJ) IVP PRN ×3 (14:17→23:27)
[2017-10-29] MEDS: HYDROcodone/APAP 5-325MG 1 EACH TAB PO PRN ×2 (15:25→21:30)
[2017-10-29] MEDS: LACTATED RINGERS 1,000 ML IV SCH (15:26)
[2017-10-29] MEDS ORDERED: FAMOTIDINE 20 MG TAB PO PRN (15:59)
[2017-10-29] MEDS: HEPARIN SODIUM,PORCINE 5,000 UNIT/ML 1 ML VIAL SQ SCH ×2 (17:00→23:27)
[2017-10-29] MEDS: LORazepam 1 MG TAB PO PRN (17:00)
[2017-10-29] MEDS: METOPROLOL TARTRATE 25 MG TAB PO SCH (21:28)
[2017-10-30 01:39] VITALS: TEMP 97.6
[2017-10-30] MEDS: LACTATED RINGERS 1,000 ML IV SCH (01:44)
[2017-10-30] MEDS: MORPHINE SULFATE 4 MG/0.8 ML SYRINGE (INJ) IVP PRN ×2 (04:03→08:48)
[2017-10-30] MEDS: HYDROcodone/APAP 5-325MG 1 EACH TAB PO PRN ×2 (05:49→12:01)
[2017-10-30 07:51] VITALS: BP 114/62; PULSE 71; RESP 16
[2017-10-30] MEDS: HEPARIN SODIUM,PORCINE 5,000 UNIT/ML 1 ML VIAL SQ SCH (08:43)
[2017-10-30] MEDS: amLODIPine 10 MG TAB PO SCH ×2 (08:44→12:00)
[2017-10-30] MEDS: METOPROLOL TARTRATE 25 MG TAB PO SCH (08:44)
[2017-10-30] MEDS: LORazepam 1 MG TAB PO PRN (08:46)
--- NOTE | 2017-10-30 11:40 | P.DS ---
Providers Date of admission: 10/29/17 09:31 Attending physician: Mak Lopez DO Consults: 10/29/17 10:44 Consult Physician Routine Consulting Provider: [facility] Consult Reason/Comments: [facility] Do you want consulting provider notified?: Yes [facility]: [facility] Course: Patient was admitted on 10/29/17 with worsening RLQ abdominal pain was taken to OR for diagnostic lap with appendectomy, surgery was uneventful, he was found to have an enteritis and appendicitis, POD#1 patient was tolerating diet and pain was improved. He was discharged home in stable condition with instructions to follow up with his PCP and my clinic in 2 weeks. Patient Condition at Discharge: Stable Plan - Discharge Summary Discharge Rx Participant: Yes New Discharge Prescriptions: New HYDROcodone/APAP 10-325MG [[place] 10-325] 1 tab PO Q6H PRN #15 tab PRN Reason: Pain No Action Hydrocodone/Acetaminophen [Hydrocodone-Acetamin 10-325 mg] 1 tab PO DAILY PRN PRN Reason: Pain LORazepam [Ativan] 1 mg PO DAILY PRN PRN Reason: Anxiety Ranitidine HCl 150 mg PO DAILY PRN PRN Reason: gerd Metoprolol Tartrate [Lopressor] 25 mg PO BID Aspirin EC [Ecotrin Low Dose] 81 mg PO DAILY amLODIPine BESYLATE [Norvasc] 10 mg PO DAILY Discharge Medication List Hydrocodone/Acetaminophen [Hydrocodone-Acetamin 10-325 mg] 1 tab PO DAILY PRN [History] Aspirin EC [Ecotrin Low Dose] 81 mg PO DAILY 01/26/17 [History] LORazepam [Ativan] 1 mg PO DAILY PRN 01/26/17 [History] Metoprolol Tartrate [Lopressor] 25 mg PO BID 01/26/17 [History] Ranitidine HCl 150 mg PO DAILY PRN 01/26/17 [History] amLODIPine BESYLATE [Norvasc] 10 mg PO DAILY 01/26/17 [History] HYDROcodone/APAP 10-325MG [[place] 10-325] 1 tab PO Q6H PRN #15 tab 10/30/17 [Rx] Follow up Appointment(s)/Referral(s): Mak Lopez DO [Doctor of Osteopathic Medicine] - 2 Weeks Naveen Funk DO [Primary Care Provider] - 1-2 days Discharge Disposition: HOME SELF-CARE
== END 2017-10-30 13:25 | disposition home or self-care (01) ==
LOC: EC 06:27 → 3SUR 09:31
PROVIDERS: ADMIT Student in an Organized Health Care Education/Training Program; ATTEND Student in an Organized Health Care Education/Training Program
DX: K35.80 Unspecified acute appendicitis (principal); K52.9 Noninfective gastroenteritis and colitis, unspecified; K21.9 Gastro-esophageal reflux disease without esophagitis; I10 Essential (primary) hypertension; L40.9 Psoriasis, unspecified; J30.2 Other seasonal allergic rhinitis; F41.9 Anxiety disorder, unspecified; Z79.82 Long term (current) use of aspirin; Z79.899 Other long term (current) drug therapy; Z87.891 Personal history of nicotine dependence; Z80.0 Family history of malignant neoplasm of digestive organs
CPT/HCPCS: 44970; 99285 ×2; 96374 ×2; 96375 ×2; 96361 ×3; 36415; 88304; 80053; 82150; 83690; 85025; 74018; 74177; G0378 ×2; J2250; J1644 ×2; J2710; J2175; J2405 ×2; J2001; J3010; J1885; J1100; J0330; J2704; Q9967; J2270 ×3

== ENCOUNTER → 2017-12-08 | Outpatient (CLI) | payer OTHER ==
[2017-12-08 11:58] LABS: ALT 36 U/L (21-72); AST 20 U/L (17-59); Cholesterol 164 mg/dL (<200); Creatine Kinase 74 U/L (55-170); HDL Cholesterol 63 mg/dL (40-60); LDL Cholesterol,Calculated 90 mg/dL (0-99); Triglycerides 57 mg/dL (<150)
== END | disposition home or self-care (01) ==
LOC: LABWHC1 11:11
PROVIDERS: ATTEND Internal Medicine Interventional Cardiology
DX: E78.2 Mixed hyperlipidemia (principal)
CPT/HCPCS: 36415; 80061; 82550; 84450; 84460

== ENCOUNTER → 2018-08-17 | Outpatient (CLI) | payer OTHER ==
[2018-08-17 14:59] LABS: Basophils % (A) 1 %; Eosinophils # (A) 0.1 k/uL (0-0.7); Eosinophils % (A) 2 %; HCT 44.3 % (39.0-53.0); HGB 14.8 gm/dL (13.0-17.5); Lymphocytes # (A) 1.8 k/uL (1.0-4.8); Lymphocytes % (A) 35 %; MCH 31.4 pg (25.0-35.0); MCHC 33.5 g/dL (31.0-37.0); MCV 93.7 fL (80.0-100.0); Monocytes # (A) 0.3 k/uL (0-1.0); Monocytes % (A) 5 %; Neutrophils # (A) 2.8 k/uL (1.3-7.7); Neutrophils % (A) 55 %; Platelet Count 218 k/uL (150-450); RBC 4.72 m/uL (4.30-5.90); WBC 5.1 k/uL (3.8-10.6)
== END | disposition home or self-care (01) ==
LOC: LABWHC1 14:05
PROVIDERS: ATTEND Dermatology
DX: L40.0 Psoriasis vulgaris (principal)
CPT/HCPCS: 36415; 82565; 84450; 84460; 85025; 86480

== ENCOUNTER 2018-08-27 22:17 | Emergency (ER) | payer OTHER ==
[2018-08-27 22:24] VITALS: BP 141/102; PULSE 80; RESP 17; TEMP 97.5
[2018-08-27] MEDS ORDERED: KETOROLAC 60 MG/2 ML VIAL IM STA (22:42)
[2018-08-27] MEDS ORDERED: HYDROcodone/APAP 5-325MG 1 EACH TAB PO STA (22:42)
--- NOTE | 2018-08-27 22:57 | XR ---
EXAM: XR Left Knee, 3 views XR Right Knee, 3 views CLINICAL HISTORY: Pain TECHNIQUE: Three views of the bilateral knees. COMPARISON: No relevant prior studies available. FINDINGS: Bones/joints: Unremarkable. No acute fracture. No dislocation. Soft tissues: Unremarkable. IMPRESSION: Normal bilateral knee x-rays.
[2018-08-27] MEDS ORDERED: METOPROLOL TARTRATE 25 MG TAB PO STA (23:06)
--- NOTE | 2018-08-27 23:07 | ED ---
Extremity Problem HPI - General Chief complaint: Extremity Problem,Nontraumatic Stated complaint: Knee pain Time Seen by Provider: 08/27/18 22:25 Source: patient Mode of arrival: ambulatory Limitations: no limitations - History of Present Illness Initial comments: 48-year-old male past medical history of hypertension presenting today for chief complaint of bilateral knee pain. Patient states he's had knee pain for years. He states that it seems to be increasing for the past month. Patient states that he is able to ambulate however this increases the pain. Patient denies any trauma, erythema. Patient states that to look mildly swollen to him in comparison to usual. Patient denies any calf pain, coolness numbness tingling or loss sensation lower extremities he denies any pallor. Patient denies noticing any pattern with immediate resolution of symptoms upon stopping walking. Patient denies any history of back injury or severe back pain, deep venous thrombosis, he denies any recent travel he denies any fever daily denies any IV drug use he denies any recent surgical procedures he denies recent use of fluoroquinolones. Patient states he does have psoriasis. Patient has not taken any medication to alleviate the pain. Patient has not had this evaluated by an out provider. Patient states he decided he can no longer take it anymore denies any significant increase the pain and presented to the emergency department for further evaluation. Patient denies taking any blood pressure medication, he states he is not compliant daily with them. Patient takes metoprolol and Norvasc. Patient blood pressure elevated upon arrival. Remainder review of system negative, patient denies any recent fever, chills, shortness of breath, chest pain, back pain, abdominal pain, nausea or vomiting, numbness or tingling, dysuria or hematuria, constipation or diarrhea, headaches or visual changes, or any other complaints. - Related Data Home Medications Medication Instructions Recorded Confirmed Aspirin EC [Ecotrin Low Dose] 81 mg PO DAILY 01/26/17 08/27/18 LORazepam [Ativan] 1 mg PO TID PRN 01/26/17 08/27/18 Metoprolol Tartrate [Lopressor] 25 mg PO BID 01/26/17 08/27/18 amLODIPine BESYLATE [Norvasc] 10 mg PO DAILY 01/26/17 08/27/18 Adalimumab [Humira Pen] 40 mg SQ [id number] 08/27/18 08/27/18 Gabapentin [Neurontin] 300 mg PO TID PRN 08/27/18 08/27/18 Ibuprofen [Motrin] 800 mg PO Q8H PRN 08/27/18 08/27/18 Omeprazole 40 mg PO DAILY 08/27/18 08/27/18 Allergies Allergy/AdvReac Type Severity Reaction Status Date / Time No Known Allergies Allergy Verified 08/27/18 22:49 Review of Systems ROS Statement: Those systems with pertinent positive or pertinent negative responses have been documented in the HPI. ROS Other: All systems not noted in ROS Statement are negative. Past Medical History Past Medical History: Chest Pain / Angina, GERD/Reflux, Hypertension, Skin Disorder Additional Past Medical History / Comment(s): PSORIASIS, History of Any Multi-Drug Resistant Organisms: None Reported Past Surgical History: Orthopedic Surgery Additional Past Surgical History / Comment(s): rt shoulder SX, Left elbow surgery Past Anesthesia/Blood Transfusion Reactions: No Reported Reaction Past Psychological History: Anxiety Smoking Status: Former smoker Past Alcohol Use History: None Reported Past Drug Use History: None Reported - Past Family History Mother History Unknown: Yes Family Medical History: No Reported History Additional Family Medical History / Comment(s): stents Father Family Medical History: Cancer Additional Family Medical History / Comment(s): stomach cancer General Exam - General Exam Comments Initial Comments: General: The patient is awake and alert, in no distress, and does not appear acutely ill. Eye: Pupils are equal, round and reactive to light, extra-ocular movements are intact. No nystagmus. There is normal conjunctiva bilaterally. No signs of icterus. Ears, nose, mouth and throat: There are moist mucous membranes and no oral lesions. Neck: The neck is supple, there is no tenderness or JVD. Cardiovascular: There is a regular rate and rhythm. No murmur, rub or gallop is appreciated. Respiratory: Lungs are clear to auscultation, respirations are non-labored, breath sounds are equal. No wheezes, stridor, rales, or rhonchi. Musculoskeletal: Positive/the knees they appear equal bilaterally. There is no evidence of soft tissue swelling. There is no erythema. Patient is able to fully range at the knees bilaterally with full flexion and extension. There is no pain out of proportion. There is no resistance. Strength 5 out of 5 at the lower extremities equal bilaterally. Compartments are soft and compressible. There is no tenderness to palpation along the deep venous system of the lower extremity. There is no calf pain. Negative Homans sign. Sensation intact of the lower extremities equal comparison bilaterally. Dorsalis pedis pulses +2 equal bilaterally. Extremities are warm to touch equal comparison bilaterally. Capillary refill less than 2 seconds. No laxity noted of the joints. She is able to ambulate. Neurological: A&O x 3. CN II-XII intact, There are no obvious motor or sensory deficits. Coordination appears grossly intact. Speech is normal. Skin: Skin is warm and dry and no rashes or lesions are noted. Psychiatric: Cooperative, appropriate mood & affect, normal judgment. Limitations: no limitations Course Vital Signs 08/27/18 22:21 Temperature 97.5 F L Pulse Rate 80 Respiratory 17 Rate Blood Pressure 141/102 Medical Decision Making - Medical Decision Making Well-appearing 48-year-old male. Elevated blood pressure, denied taking medications today. Patient was provided with home medication however review of systems negative for any signs of end organ damage. Patient presented for knee pain. This appears chronic in nature. There is no signs of infectious process. No osseous abnormality noted on x-ray. There is no vascular abnormalities, patient is neurovascularly intact. Wells score 0 for DV. There is negative Homans, no signs of deep venous thrombosis. Patient is There is possibility of inflammatory process such as rheumatoid arthritis. At this time do feel patient is stable for discharge with outpatient follow-up for further evaluation of chronic bilateral knee pain. Patient ambulatory upon discahrge pt denies questions at this time and is agreeable with plan. Patient discharged. Will after discussing the case with attending provider Dr. Dunaway. Disposition Clinical Impression: Bilateral knee pain, Elevated blood pressure reading with diagnosis of hypertension Disposition: HOME SELF-CARE Condition: Good Instructions (If sedation given, give patient instructions): Knee Pain (ED) Additional Instructions: Please use medication as discussed. Please follow-up with family doctor in the next 2 days, please seek orthopedic evaluation if symptoms persist. Please take your blood pressure medication as instructed. Please return to emergency room if the symptoms increase or worsen or for any other concerns. Is patient prescribed a controlled substance at d/c from ED?: No Referrals: Naveen Funk DO [Primary Care Provider] - 1-2 days Uriel Forbes MD [Medical Doctor] - 1-2 days Time of Disposition: 23:07
== END 2018-08-27 23:23 | disposition home or self-care (01) ==
LOC: EC 22:17
DX: M25.562 Pain in left knee (principal); M25.561 Pain in right knee; I10 Essential (primary) hypertension; M79.89 Other specified soft tissue disorders; K21.9 Gastro-esophageal reflux disease without esophagitis; L40.9 Psoriasis, unspecified; Z87.891 Personal history of nicotine dependence; Z79.82 Long term (current) use of aspirin; Z79.899 Other long term (current) drug therapy
CPT/HCPCS: 73562; 99283; 96372; J1885

== ENCOUNTER → 2018-09-11 | Outpatient (CLI) | payer OTHER ==
[2018-09-11 14:27] LABS: HCT 44.2 % (39.0-53.0); MCH 31.6 pg (25.0-35.0); MCV 93.1 fL (80.0-100.0); Mean Platelet Volume 7.5; Platelet Count 221 k/uL (150-450); RBC 4.74 m/uL (4.30-5.90); RDW 13.4 % (11.5-15.5); WBC 7.5 k/uL (3.8-10.6)
[2018-09-11 15:46] LABS: Erythrocyte Sedimentation Rate 3 mm/hr (0-15)
[2018-09-11 18:35] LABS: Vitamin D 25 Hydroxy 17.8 ng/mL (30.0-100.0)
[2018-09-11 18:40] LABS: ALT 46 U/L (10-49); AST 29 U/L (14-35); Albumin/Globulin Ratio 1.91 (1.60-3.17); Alkaline Phosphatase 83 U/L (41-126); C Reactive Protein <0.4 mg/dL (0.0-0.8); Calcium 9.9 mg/dL (8.7-10.3); Carbon Dioxide 29.7 mmol/L (21.6-31.8); Chloride 108 mmol/L (96-109); Folate, Serum 13.7 ng/mL; Globulin 2.2 g/dL (1.6-3.3); Glucose 97 mg/dL (70-110); Sodium 143 mmol/L (135-145); Total Bilirubin 0.4 mg/dL (0.3-1.2); Total Protein 6.4 g/dL (6.2-8.2)
== END | disposition home or self-care (01) ==
LOC: LABWHC1 14:11
DX: K29.60 Other gastritis without bleeding (principal); R19.7 Diarrhea, unspecified
CPT/HCPCS: 36415; 80053; 82306; 82607; 82746; 83630; 83993; 85027; 85652; 86140; 87324; 87338

== ENCOUNTER → 2018-11-15 | Outpatient (CLI) | payer OTHER | END | disposition home or self-care (01) | LOC: LABWHC1 10:44 | PROVIDERS: ATTEND Internal Medicine Rheumatology | DX: L40.50 Arthropathic psoriasis, unspecified (principal) | CPT/HCPCS: 36415 ==

== ENCOUNTER → 2019-08-21 | Outpatient (CLI) | payer OTHER ==
[2019-08-21 16:13] LABS: HCT 40.5 % (39.0-53.0); HGB 13.7 gm/dL (13.0-17.5); MCH 30.9 pg (25.0-35.0); MCHC 33.8 g/dL (31.0-37.0); MCV 91.6 fL (80.0-100.0); Mean Platelet Volume 8.7; Platelet Count 224 k/uL (150-450); RBC 4.42 m/uL (4.30-5.90); RDW 13.5 % (11.5-15.5); WBC 13.4 k/uL (3.8-10.6)
[2019-08-21 17:26] LABS: Erythrocyte Sedimentation Rate 13 mm/hr (0-15)
[2019-08-22 00:29] LABS: ALT 32 U/L (10-49); AST 32 U/L (14-35); African American GFR (CKD) 91.5 (60.0-200.0); Alkaline Phosphatase 90 U/L (41-126); BUN/Creat Ratio 19.09 Ratio (12.00-20.00); C Reactive Protein <0.4 mg/dL (0.0-0.8); Carbon Dioxide 30.1 mmol/L (21.6-31.8); Chloride 105 mmol/L (96-109); Glucose 107 mg/dL (70-110); Potassium 3.6 mmol/L (3.5-5.5); Sodium 144 mmol/L (135-145); Total Bilirubin 0.2 mg/dL (0.3-1.2)
[2019-08-22 00:50] LABS: Hepatitis B Surface Antigen Non-Reactive (Non-Reactive)
[2019-08-22 00:51] LABS: Hepatitis B Surface AB- Quant 3.5 mIU/mL; Hepatitis B Surface Antibody Non-Reactive (Non-Reactive); Hepatitis C IgG Antibody Non-Reactive (Non-Reactive)
== END | disposition home or self-care (01) ==
LOC: LABWHC1 15:20
PROVIDERS: ATTEND Internal Medicine
DX: L40.50 Arthropathic psoriasis, unspecified (principal)
CPT/HCPCS: 36415; 80053; 85027; 85652; 86140; 86706; 86803; 87340

== ENCOUNTER → 2022-06-27 | Outpatient (CLI) | payer OTHER ==
--- NOTE | 2022-06-27 07:48 | US ---
EXAMINATION TYPE: US gallbladder DATE OF EXAM: 06/27/2022 COMPARISON: CT abdomen and pelvis 2018 CLINICAL HISTORY: R10.11 RUQ PAIN. pain diarrhea TECHNIQUE: Multiple sonographic images of the right upper quadrant are obtained. FINDINGS: EXAM MEASUREMENTS: Liver Length: 14 cm Gallbladder Wall: .2 cm CBD: .4 cm Right Kidney: 9.7 x 4.8 x 4.5 cm PHYSICAL EDUCATION INSTRUCTOR NOTES: Pancreas: Duct visualized tail obscured by bowel gas. Liver: wnl Gallbladder: Stone visualized. Evidence for sonographic Lewis's sign: no CBD: wnl Right Kidney: wnl Visualized portion of pancreas appears within normal limits. Visualized liver unremarkable. No right- sided hydronephrosis. Large shadowing intraluminal gallstone without pericholecystic fluid or abnorma l gallbladder wall thickening. IMPRESSION: Large gallstone without secondary ultrasound evidence for acute cholecystitis.
== END | disposition home or self-care (01) ==
LOC: RADUSWWP 07:04
PROVIDERS: ATTEND Family Medicine
DX: K80.20 Calculus of gallbladder without cholecystitis without obstruction (principal)
CPT/HCPCS: 76705

== ENCOUNTER → 2024-01-02 | Outpatient (CLI) | payer BC ==
[2024-01-02 15:23] LABS: ALT 35 U/L (10-49); AST 33 U/L (14-35); Chol/HDL Ratio 4.25 Ratio; LDL Cholesterol,Calculated 146.4 mg/dL (0.0-131.0); VLDL Calculation 19.64 mg/dL (5.00-40.00)
== END | disposition home or self-care (01) ==
LOC: LABWHC1 09:51
PROVIDERS: ATTEND Internal Medicine Interventional Cardiology
DX: E78.2 Mixed hyperlipidemia (principal)
CPT/HCPCS: 36415; 80061; 84450; 84460

== ENCOUNTER → 2024-04-23 | Outpatient (CLI) | payer BC ==
--- NOTE | 2024-04-23 12:30 | XR ---
EXAMINATION TYPE: XR Hip Bilateral Complete DATE OF EXAM: 04/23/2024 12:21 PM CLINICAL INDICATION: Male, 53 years old with history of M70.62 XR B/L HIPS TROCHANTERIC; PHH COMPARISON: None. TECHNIQUE: XR Hip Bilateral Complete; hip was examined in the frontal and lateral projections and a A P pelvis. FINDINGS: No evidence for acute process, joint dislocation or significant soft tissue swelling. Osteo phyte formation of the superior acetabulum of the hip. There is mild joint space narrowing. IMPRESSION: 1. No evidence for acute process. 2. Mild bilateral hip osteoarthrosis. [facility], , 04/23/2024 12:28 PM
== END | disposition home or self-care (01) ==
LOC: RADXRMAIN 11:46
PROVIDERS: ATTEND Family Medicine
CPT/HCPCS: 73521

== ENCOUNTER → 2024-06-10 | Outpatient (CLI) | payer BC ==
--- NOTE | 2024-06-10 21:36 | MR ---
EXAMINATION TYPE: MR lumbar spine wo con DATE OF EXAM: 06/10/2024 8:34 PM COMPARISON: None. CLINICAL INDICATION: Male, 53 years old with history of M47.816, M54.16; PHH, Low back pain into left thigh/knee, TECHNIQUE: Multi planar, multi sequence imaging was performed utilizing: T1-weighted, T2-weighted, a nd turbo inversion recovery imaging of the lumbar spine. IV Contrast: mL (None, if empty) FINDINGS: Alignment: The lumbar vertebral bodies have preserved heights and alignment. Cord: The conus medullaris and the distal spinal cord appear unremarkable with regards to their signa l intensity and morphology. Bones/Discs: Mild degeneration changes throughout the spine with osteophyte formation and facet joint arthropathy. Intervertebral disc signal is maintained. No abnormal inversion recovery signal to sugg est bony edema. T12-L1: No evidence of significant spinal canal stenosis or neural foraminal stenosis. L1-L2: No evidence of significant spinal canal stenosis or neural foraminal stenosis. L2-L3: No evidence of significant spinal canal stenosis or neural foraminal stenosis. L3-L4: No evidence of significant spinal canal stenosis or neural foraminal stenosis. L4-L5: No evidence of significant spinal canal stenosis or neural foraminal stenosis. L5-S1: The disc has a rounded posterior morphology without significant spinal canal stenosis. Facet j oint arthropathy with mild bilateral neural foraminal stenosis. No significant spinal canal or neural foraminal stenosis in the remainder of the visualized levels. Other findings: None. IMPRESSION: 1. No definitive evidence of disc herniation or significant spinal canal stenosis. 2. Minimal disc degeneration with associated osteoarthritic changes. No evidence for significant kassie ral foraminal stenosis. [facility], , 06/10/2024 9:34 PM
== END | disposition home or self-care (01) ==
LOC: RADMRIMAIN 19:09
PROVIDERS: ATTEND Orthopaedic Surgery
DX: M47.22 Other spondylosis with radiculopathy, cervical region (principal); M51.16 Intervertebral disc disorders with radiculopathy, lumbar region
CPT/HCPCS: 72148

== ENCOUNTER → 2024-07-18 | Outpatient (CLI) | payer BC ==
[2024-07-18 12:47] VITALS: BP 151/104; PULSE 92; RESP 17; TEMP 98.1
--- NOTE | 2024-07-18 15:05 | P.PAINPG ---
Objective - Vital Signs Vital signs: Intake & Output 07/17/24 07/18/24 07/18/24 18:59 06:59 18:59 Weight 79.832 kg PQRS Measure Charge Sheet Comment: HISTORY OF PRESENT ILLNESS: A 54 yr old male as a referral from [facility] presents today w severe and chronic LBP > 1 yr secondary to radiculopathy, spondylosis and facet arthropathy without myelopathy for evaluation. Pt states pain level is provoked at 6 /10 in intensity, constant, localized in the mid lumbar spine, predominantly axial, achy in character w occasional shooting pain towards the LLE. Pain is provoked by sitting for periods > 30 min. Pain is alleviated by PT x 4 wks which he is currently in ,heat, ice, medications (Tramadol, Ibu), topical CBD Oil, repositioning and rest . Oswestry axial pain score at 26. PMH: OA, Angina, GERD, HTN, Psoriasis, Anxiety PSH: R Shoulder Surgery, L Elbow Surgery SH: Former tobacco user, No ETOH abuse, No illicit drug use FH: Mo- CAD, Fa- Stomach CA All: See list Meds: See list REVIEW OF ORGAN SYSTEMS: CONSTITUTIONAL: No fevers or chills. No recent weight loss. NEUROLOGICAL: + numbness and tingling along the distal extremities. No seizure disorders or headaches. MUSCULOSKELETAL: + pain PSYCHIATRIC: Denies current depression or suicidal thoughts. Physical Examinations : Constitutional : Cooperative , not in acute distress . Neurologic : Cranial nerve II to XII intact. No focal neurological deficits. Psychiatric : alert & oriented x 3. Matching mood & appropriate affect. Judgment & insight intact. Musculoskeletal : Cervical Spine Motor strength in the deltoid and biceps: Normal right side. Normal Left side Motor strength biceps and the wrist extensors: Normal right side . Normal left side Motor strength in the triceps muscle: Normal right side. Normal left side Deep tendon reflexes: Normal at the biceps. Normal at Brachioradialis. Normal at triceps Vertebral body tenderness to deep palpation over Cervical facet loading test: positive bilaterally Spurling test: positive bilaterally Neck distraction test: positive bilaterally Dariela sign: positive bilaterally Lumbar spine Motor strength lower extremities ,thigh and legs 5/5 Right side , 5/5 Left side Deep tendon reflexes : Normal Knee Jerk. Normal Ankle Jerk Vertebral body tenderness over L2 Bartlett Test positive BL L2-L3 Lumbar facet Loading Test: positive Right / positive Left Range of motion of the lumbar spine Flexion 30 degrees, extension 10 degrees Straight Leg Raise test: Left/ Right positive at degrees Blaine test: positive right / positive left. Severe tenderness over the Sacroiliac joint on the Right / Left sides Gaenslen test: positive bilaterally Seated flexion test: positive bilaterally. Sacral spine : Severe tenderness over the Sacroiliac joint: right side / left side Range of motion: Flexion of the lumbar spine <60 degrees Range of motion: Extension of the lumbar spine <20 degrees Gaenslen's Test positive Blaine test: positive right side / left side Thigh Thrust Test Sacral Thrust Test Imaging: MRI non contrast lumbar spine from 06/10/24 reviewed Assessment/ Plan : L2-L3 radiculopathy Recommendation of CINDY L2-L3 #1. Risks, benefits of procedure discussed and patient verbalized understanding. Admits to anti- coagulant use or medical history of diabetes. Protocol for discontinuation/ continuation of medications nahum procedure discussed. All questions answered. I have spent greater than 30 minutes on patient care today. Dr Parks was available by phone for the evaluation of this patient. The time was used to review the medical records including relevant urine studies and Prescription history (MAPs), review of the available imaging, evaluation and examination of the patient, coordination of care with the medical staff and if applicable referring physicians, as well as creation of the medical record PQRS Narrative: Smoking Status Former smoker Home Medications: Ambulatory Orders Aspirin EC [Ecotrin Low Dose] 81 mg PO DAILY 01/26/17 LORazepam [Ativan] 1 mg PO TID PRN 01/26/17 Metoprolol Tartrate [Lopressor] 25 mg PO BID 01/26/17 amLODIPine BESYLATE [Norvasc] 10 mg PO DAILY 01/26/17 Adalimumab [Humira Pen] 40 mg SQ [id number] 08/27/18 Gabapentin [Neurontin] 300 mg PO TID PRN 08/27/18 Ibuprofen [Motrin] 800 mg PO Q8H PRN 08/27/18 Omeprazole 40 mg PO DAILY 08/27/18 Controlled Substance Measures - Controlled Substance Measures Is patient prescribed a controlled substance at discharge?: No
== END ==
LOC: PNWHC3 12:08
PROVIDERS: ATTEND Specialist
DX: M54.16 Radiculopathy, lumbar region (principal); G89.29 Other chronic pain; Z87.891 Personal history of nicotine dependence
CPT/HCPCS: 99202; 99211